=== PATIENT | female | born 2000 | race Caucasian/White ===

== ENCOUNTER 2023-12-29 18:56 | Emergency (ER) | payer OTHER, SELFPAY ==
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
[2023-12-29 19:10] VITALS: BP 121/68; PULSE 75; RESP 18; TEMP 36.3; O2SAT 99
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
[2023-12-29] MEDS: ACETAMINOPHEN 500 MG TABLET 1000 MG PO (21:55)
== END 2023-12-29 22:22 | disposition home or self-care (01) ==
PROVIDERS: Emergency Provider Preventive Medicine Aerospace Medicine; PCP Pediatrics
DX: R07.89 Other chest pain (principal); S80.811A Abrasion, right lower leg, initial encounter; S30.1XXA Contusion of abdominal wall, initial encounter; T23.271A Burn of second degree of right wrist, initial encounter; T31.0 Burns involving less than 10% of body surface; K21.9 Gastro-esophageal reflux disease without esophagitis; V49.40XA Driver injured in collision with unspecified motor vehicles in traffic accident, initial encounter; W22.11XA Striking against or struck by driver side automobile airbag, initial encounter
CPT/HCPCS: 71046; 99283; A9270

== ENCOUNTER 2024-04-10 22:56 | Emergency (ER) | payer OTHER, SELFPAY ==
[2024-04-10 23:09] VITALS: BP 130/93; PULSE 73; RESP 20; TEMP 36.4; O2SAT 100
[2024-04-10 23:32] LABS: Alanine Aminotransferase 13 U/L (6-35); Alkaline Phosphatase 73 U/L (38-126); Anion Gap 9 mmol/L (4-12); Aspartate Amino Transferase 19 U/L (14-36); Bilirubin,Total 0.6 mg/dL (0.2-1.3); Blood Urea Nitrogen 6 mg/dL (7-17); Calcium 8.4 mg/dL (8.4-10.2); Carbon Dioxide 25 mmol/L (22-30); Chloride 100 mmol/L (98-107); Estimated CRCL calculation 88 ml/min; Estimated Glomerular Filt Rate > 60; Glucose 88 mg/dL (65-110); Potassium 3.4 mmol/L (3.4-5.0); Sodium 134 mmol/L (137-145)
[2024-04-10 23:36] LABS: Basophils Percent Auto 0.3 % (0.2-1.2); Eosinophils Percent Auto 0.5 % (0-4.4); Hematocrit 41.2 % (37.0-47.0); Hemoglobin 14.6 g/dL (12.0-15.0); Immature Granulocyte Absolute 0.01 K/mm3 (0.00-0.031); Immature Granulocyte Percent A 0.2 % (0-0.5); Lymphocytes Absolute Auto 1.95 K/mm3 (0.9-3.2); Lymphocytes Percent Auto 30.3 % (18.3-44.2); Mean Corpuscular HGB Conc 35.4 g/dl (32-36); Mean Corpuscular Hemoglobin 32.2 pg (26-34); Mean Corpuscular Volume 90.7 fl (80-100); Mean Platelet Volume 9.5 fl (7.4-10.4); Monocytes Absolute Auto 0.5 K/mm3 (0.1-0.6); Monocytes Percent Auto 7.2 % (2.6-8.5); Neutrophils Percent Auto 61.5 % (45.5-73.1); Platelet Count Result 241 k/mm3 (150-375); Red Blood Count 4.54 M/mm3 (4.2-5.4); Red Cell Distribution Width 12.2 % (11.5-14.5); White Blood Count 6.4 K/mm3 (4.5-10.0)
--- NOTE | 2024-04-11 00:38 | PC.NURSE ---
Pt c/o weakness and not being able to eat since Wednesday. Pt denies any sick contacts and states she is anemic. Pt A&O x 4
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
[2024-04-11 01:30] LABS: Add Urine Microscopic? NO; Appearance Urine Clear (Clear); Bilirubin Urine Negative (Negative); Blood Urine Negative (Negative); Color Urine Yellow (Yellow); Glucose Urine UA Negative (Negative); Ketones Urine Trace mg/dL (Negative); Leukocyte Esterase Ur Negative LEU/UL (Negative); Nitrate Urine Negative (Negative); Protein Urine Negative (Negative); Specific Grav Ur 1.004 (1.001-1.035); Urobilinogen Urine 0.2 mg/dL (<2.0); pH Urine 6.5 (5.0-9.0)
--- OUTSIDE RECORDS SUMMARY | 2024-04-13 15:05 | XMS_ITS | Referral Summary ---
Author Organization [facility] Address [address] [place] [address] Care Team Providers Care Book Cutter Name Role Phone Terry Lepe MD Primary Care Provider [phone] Terry Lepe MD Unavailable [phone] Source Comments [facility],non-owned Affiliates and Associated Physician Practices is amultiple site organization consisting of ambulatory clinics and hospital sitesin [place], [place], [place] and [place]. This disclosure is being madepursuant to the Care Everywhere program and may not contain all information available regarding this patient. Last updated 17.[facility] Allergies No known active allergies Medications * Be aware that medications may not be up to date on this document. Alwaysverify current medications with the patient. Medication Sig Dispensed Refills Start Date End Date Status medroxyPROGESTERone (DEPO-PROVERA) 150 MG/ML prefilled syringe TK UTD BY MD OFFICE 0 07/30/2017 Active polyethylene glycol 3350 (MIRALAX) powder Take 17 g by mouth once daily 500 g 1 09/09/2017 Active fluticasone propionate (FLONASE) 50 MCG/ACT nasal spray [place] 2 sprays into each nostril once daily 1 bottles 11/19/2017 Active ferrous sulfate 325 (65 FE) MG tablet Take 1 tablet by mouth 2 times daily Take w/ vitamin C such as OJ. Miralax or generic for tummy upset. 60 tablet 3 12/30/2017 Active omeprazole (PRILOSEC) 20 MG capsule 1 04/03/2018 Active cyproheptadine (PERIACTIN) 2 MG/5ML syrup Take 10 mL by mouth at bedtime 300 mL 2 11/03/2018 Active fluticasone propionate (FLONASE) 50 MCG/ACT nasal spray [place] 2 sprays into each nostril once daily 16 g 1 05/29/2019 Active montelukast (SINGULAIR) 10 MG tablet Take 1 tablet by mouth at bedtime 30 tablet 5 07/21/2019 Active Active Problems Problem Noted Date Diagnosed Date Wrist pain, acute, right 05/12/2018 Primary snoring 02/09/2018 Overview (02/09/2018): Primary soft snoring Neg diag psg 02/01/18 S/p T&A OAHI 0.9 AHI: 1.3 RDI: 1.9 Min 02 sat: 95% Et/TcCO2 values: 30-44mmHg PLM index: 0.0 Acid reflux 09/08/2017 Concussion 09/08/2017 Right knee injury 11/21/2015 Lymphadenopathy 11/11/2009 Right knee pain Nasal obstruction Hypertrophy of adenoids Social History Tobacco Use Types Packs/Day Years Used Date Smoking Tobacco: Passive Smo ke Exposure - Never Smoker Smokeless Tobacco: Never Alcohol Use Standard Drinks/Week Comments No 0 (1 standard drink = 0.6 oz pur e alcohol) Sex and Gender Information Value Date Recorded Sex Assigned at Not on file Gender Identity Not on file Sexual Orientation Not on file Last Filed Vital Signs Vital Sign Reading Time Taken Comments Blood Pressure 102/50 12/30/2017 1:14 PM CDT Pulse 72 12/30/2017 1:14 PM CDT Temperature 36.6 ??C (97.8 ??F) 11/19/2017 1 1:55 AM CDT Respiratory Rate 20 11/19/2017 11:5 5 AM CDT Oxygen Saturation 100% 10/19/2017 4:45 PM CDT Inhaled Oxygen Concentration - - Weight 46.2 kg (101 lb 13.6 oz) 11/23/2018 3:21 PM CDT Height 149 cm (4' 10.66 ) 04/21/2018 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
--- OUTSIDE RECORDS SUMMARY | 2024-04-13 15:05 | XMS_ITS | Clinical Summary ---
Author Organization [facility] Address [address] [address] Care Team Providers Care Real Estate Assistant Name Role Phone Terry Lepe MD Primary Care Provider [phone] Terry Lepe MD Unavailable [phone] Source Comments [facility],non-owned Affiliates and Associated Physician Practices is amultiple site organization consisting of ambulatory clinics and hospital sitesin [place], [place], [place] and [place]. This disclosure is being madepursuant to the Care Everywhere program and may not contain all information available regarding this patient. Last updated 17.[facility] Allergies No known active allergies Medications * [...] fluticasone propionate (FLONASE) 50 MCG/ACT nasal spray [place] 2 sprays into each nostril once daily [...] fluticasone propionate (FLONASE) 50 MCG/ACT nasal spray [place] 2 sprays into each nostril once daily [...] cm (4' 10.66 ) 04/21/2018 8:52 AM PHYSICAL THERAPIST CLINIC DIRECTOR Body Mass Index - - Plan of Treatment Health Maintenance Due Date Last Done Comments PAP SMEAR 2002 HIV SCREENING 2017 HPV VACCINE (1 - 3-dose series) 2017 CHLAMYDIA/GONORRHEA SCREENING 2018 MENINGOCOCCAL (Group B) VACC INE (1 of 2 - Standard) 2018 HEPATITIS C SCREENING 04/30/2020 DTAP/TDAP/TD VACCINES (1 - Tdap) 2021 HEPATITIS B VACCINE (1 of 3 - 19+ 3-dose series) 2021 COVID-19 VACCINE (1 - 2023-2 5 season) 2023 INFLUENZA VACCINE (#1) 2023 DEPRESSION SCREENING 03/22/2024 ZOSTER VACCINE (1 of 2) 2052 HIB VACCINE Aged Out No longer eligi ble based on patient's age to complete this topic MENINGOCOCCAL VACCINE Aged Out No mirta fab eligible based on patient's age to complete this topic PNEUMOCOCCAL VACCINE Aged Out No long er eligible based on patient's age to complete this topic Care Teams Real Estate Assistant Relationship Specialty Start Date End Date Terry Lepe MD [address] [facility] [address] [place] [address] PCP - General Pediatrics 11/19/15 Terry Lepe MD [address] [facility] [address] [place] [address] 11/19/15
--- OUTSIDE RECORDS SUMMARY | 2024-04-13 15:05 | XMS_ITS | Patient Health Summary ---
Author Organization [facility] Address [address] [place] [address] Care Team Providers Care Rail Equipment Operator Name Role Phone Terry Lepe MD Primary Care Provider [phone] Terry Lepe MD Unavailable [phone] [facility],non-owned Affiliates and Associated Physician Practices is amultiple site organization consisting of ambulatory clinics and hospital sitesin [place], [place], [place] and [place]. This disclosure is being madepursuant to the Care Everywhere program and may not contain all information available regarding this patient. Last updated 17.[facility] Allergies No known active allergies Medications * Be aware that medications may not be up to date on this document. Alwaysverify current medications with the patient. * medroxyPROGESTERone (DEPO-PROVERA) 150 MG/ML prefilled syringe(Started 07/30/2017) TK UTD BY MD OFFICE * polyethylene glycol 3350 (MIRALAX) powder(Started 09/09/2017) Take 17 g by mouth once daily 1 refill remaining * fluticasone propionate (FLONASE) 50 MCG/ACT nasal spray(Started 11/19/2017) [place] 2 sprays into each nostril once daily * ferrous sulfate 325 (65 FE) MG tablet(Started 12/30/2017) Take 1 tablet by mouth 2 times daily Take w/ vitamin C such as OJ. Miralax or generic for tummy upset. 3 refills remaining * omeprazole (PRILOSEC) 20 MG capsule(Started 04/03/2018) 1 refill left * cyproheptadine (PERIACTIN) 2 MG/5ML syrup(Started 11/03/2018) Take 10 mL by mouth at bedtime 2 refills remaining * fluticasone propionate (FLONASE) 50 MCG/ACT nasal spray(Started 05/29/2019) [place] 2 sprays into each nostril once daily 1 refill by 05/28/2020 * montelukast (SINGULAIR) 10 MG tablet(Started 07/21/2019) Take 1 tablet by mouth at bedtime 5 refills by 07/20/2020 Active Problems Problem Noted Date Diagnosed Date Wrist pain, acute, right 05/12/2018 Primary snoring 02/09/2018 Acid reflux 09/08/2017 Concussion 09/08/2017 Right knee [...] cm (4' 10.66 ) 04/21/2018 8:52 AM POULTRY VACCINATOR Body Mass Index - - Procedures * REDUCED MULTIPLE SLEEP LATENCY TEST(Performed 02/01/2018) Performed for Snoring, Daytime somnolence, Sleep paralysis * T4 FREE(Performed 12/30/2017) Performed for Daytime somnolence * TSH(Performed 12/30/2017) Performed for Daytime somnolence * FERRITIN(Performed 12/30/2017) Performed for Daytime somnolence * ADENOIDECTOMY(Performed 10/19/2017) Performed for Adenoid enlargement * HCG URINE QUAL POCT NOTIFICATION(Performed 10/19/2017) Performed for Preop examination * TISSUE TRANSGLUTAMINASE AB IGA(Performed 09/09/2017) Performed for Generalized abdominal pain * IGA BLOOD(Performed 09/09/2017) Performed for Generalized abdominal pain * COMPREHENSIVE METABOLIC PANEL(Performed 09/09/2017) Performed for Generalized abdominal pain * CBC W AUTO DIFFERENTIAL(Performed 09/09/2017) Performed for Generalized abdominal pain * CULTURE MRSA(Performed 05/07/2017) * MRI KNEE RIGHT WO CONTRAST(Performed 04/22/2016) Performed for Right knee injury, subsequent encounter * CULTURE MRSA(Performed 04/10/2016) Performed for MRSA (methicillin resistant staph aureus) culture positive * XR KNEE RIGHT 2VW OR LESS(Performed 01/07/2016) Performed for Right knee injury, initial encounter * XR KNEE RIGHT 4VW OR MORE(Performed 07/26/2015) Performed for Right knee pain, unspecified chronicity * XR KNEE LEFT 4VW OR MORE(Performed 07/26/2015) * EKG 15-LEAD(Performed 04/25/2015) Performed for Dizziness * PATHOLOGY/CYTOLOGY REPORT ORDER(Performed 04/21/2012) * CYTOGENETICS CANCER PANEL(Performed 03/11/2012) Performed for Lymphadenopathy * BIOPSY/EXCISION LYMPH NODE(S) CERVICAL/SCALENE(Performed 03/10/2012) Performed for Enlargement of lymph nodes * CULTURE FUNGUS OTHER(Performed 03/10/2012) * CULTURE AFB+SMEAR(Performed 03/10/2012) * PATHOLOGY TISSUE EXAM (STL)(Performed 03/10/2012) Performed for Lymphadenopathy * CULTURE MSSA/MRSA(Performed 03/10/2012) * PATHOLOGY/CYTOLOGY REPORT ORDER(Performed 03/02/2012) * ESOPHAGOGASTRODUODENOSCOPY (EGD) BIOPSY(Performed 03/01/2012) Performed for Abdominal pain, unspecified site * EGD(Performed 03/01/2012) Performed for Abdominal pain, unspecified site * PATHOLOGY TISSUE EXAM (STL)(Performed 03/01/2012) Performed for Abdominal pain, unspecified site * HELICOBACTER PYLORI UREASE(Performed 03/01/2012) Performed for Abdominal pain, unspecified site * CULTURE MRSA(Performed 02/24/2012) Performed for MRSA (methicillin resistant staph aureus) culture positive * DIFFERENTIAL MANUAL(Performed 02/05/2012) Performed for Abdominal pain, unspecified site * LIPASE BLOOD(Performed 02/05/2012) Performed for Abdominal pain, unspecified site * C-REACTIVE PROTEIN(Performed 02/05/2012) Performed for Abdominal pain, unspecified site * COMPREHENSIVE METABOLIC PANEL(Performed 02/05/2012) Performed for Abdominal pain, unspecified site * CBC W AUTO DIFFERENTIAL(Performed 02/05/2012) Performed for Abdominal pain, unspecified site * AMYLASE BLOOD(Performed 02/05/2012) Performed for Abdominal pain, unspecified site * XR CHEST 2VW(Performed 01/13/2012) Performed for Lymphadenopathy * CULTURE MRSA(Performed 01/13/2012) Performed for Lymphadenopathy * XR CHEST 2VW(Performed 12/09/2009) Performed for Lymphadenopathy * PATHOLOGY/CYTOLOGY REPORT ORDER(Performed 11/15/2009) * GROSS + MICRO EXAM(Performed 11/13/2009) * CULTURE MRSA(Performed 11/13/2009) * CULTURE MRSA(Performed 11/11/2009) Performed for Lymphadenopathy * DIFFERENTIAL MANUAL(Performed 11/11/2009) * CBC W AUTO DIFFERENTIAL(Performed 11/11/2009) Performed for Lymphadenopathy * GROSS EXAM PATHOLOGY(Performed 09/09/2004) * GROSS + MICRO EXAM(Performed 03/05/2004) Results * POLYSOMNOGRAM W/MULTIPLE SLEEP LATENCY TEST (02/01/2018) Pathologist [facility] Linked Results See Linked Results SLE[facility]ENTER 02/01/2018 Chata Salazar APRN[facility] * TSH (12/30/2017 2:46 PM CDT) Pathologist [facility] TSH 0.88 0.35 - 4.95 uIU/mL 12/30/2017 4:35 PM CDT [facility] Blood BLOOD SPECIMEN / Unknown Lab Venipuncture / Unknown 12/30/2017 2:46 PM CDT 12/30/2017 3:43 PM CDT Chata Rivera Martin GAS EXAMINER-SHIP WIRER LAB - CHEMISTR Y ORDERABLES Performing Organization Address [facility]/ZIP Co de Phone Number [facility] [address] [place] [phone] * T4 FREE (12/30/2017 2:46 PM CDT) Pathologist [facility] T4 Free 0.85 0.70 - 1.48 ng/dL 12/30/2017 4:49 PM CDT [facility] Blood BLOOD SPECIMEN / Unknown Lab Venipuncture / Unknown 12/30/2017 2:46 PM CDT 12/30/2017 3:43 PM CDT Chata Rivera Martin GAS EXAMINER-SHIP WIRER LAB - CHEMISTR Y ORDERABLES Performing Organization Address [facility] Co de Phone Number [facility] [address] [place] [phone] * (ABNORMAL) FERRITIN (12/30/2017 2:46 PM CDT) [facility] Ferritin <10(L) 10 - 140 ng/mL 12/30/2017 4:35 PM CDT [facility] Blood BLOOD SPECIMEN / Unknown Lab Venipuncture / Unknown 12/30/2017 2:46 PM CDT 12/30/2017 3:43 PM CDT Chata Rivera Martin GAS EXAMINER-SHIP WIRER LAB - CHEMISTR Y ORDERABLES Performing Organization Address [facility] Co de Phone Number [facility] [address] [place] [phone] * HCG URINE QUALITATIVE - POCT (IP) INTERFACED (10/19/2017 2:15 PM CDT) Urine URINE / Unknown 10/19/2017 2 :15 PM CDT 10/19/2017 2:19 PM CDT Brayden Carpenter MD LAB - POINT OF CARE ORDERABLES Performing Organization Address [facility] de Phone Number [facility] [address] [place] [address] * HCG URINE QUAL POCT NOTIFICATION (10/19/2017 1:50 PM CDT) Pathologist [facility] Comment Notification Label Only - See Separate Report 10/19/2017 3:00 PM CDT [facility] Urine URINE / Unknown 10/19/2017 1 :50 PM CDT 10/19/2017 1:50 PM CDT Brayden Carpenter MD LAB - URINALYSIS ORD ERABLES Performing Organization Address [facility] de Phone Number [facility] [address] [place] [address] * TISSUE TRANSGLUTAMINASE AB IGA (09/09/2017 3:16 PM CDT) Pathologist [facility] TTG Antibody IgA <2 0 - 3 U/mL 09/10/2017 2:14 PM CDT [facility] ([facility]) Comment: ?Negative ?0 - ??3 ?Weak Positive ?? 4 - 10 ?Positive ? >10 Tissue Transglutaminase (tTG) has been identified as the endomysial antigen. ??Studies have demonstr- ated that endomysial IgA antibodies have over 99% specificity for gluten sensitive enteropathy. Blood BLOOD SPECIMEN / Unknown Lab Venipuncture / Unknown 09/09/2017 3:16 PM CDT 09/09/2017 3:57 PM CDT Narrative [facility] ([facility]) - 09/10/2017 2:14 PM CDT Performed at: ??01 - [facility] [address] [place], [place] ??[id number] Supervisor [employer]: Brendan Henry PhD, Phone: ??[phone] Seda Silveira MD LAB - SEROLOGY ORDER ANDRE [facility]) [address] [place] [address] * (ABNORMAL) CBC W AUTO DIFFERENTIAL (09/09/2017 3:16 PM CDT) Only the most recent of3 resultswithin the time period is included. WBC 4.5 4.5 - 14.5 x10E9/L 09/09/2017 4:41 PM CDT [facility] WBC Corrected x10E9/L 09/09/2017 4:41 PM CDT [facility] RBC 4.84 4.10 - 5.10 x10E12/L 09/09/2017 4:41 PM CDT [facility] Hemoglobin 14.6 12.0 - 16.0 gm/dL 09/09/2017 4:41 PM CDT [facility] Hematocrit 42.2 36.0 - 47.0 % 09/09/2017 4:41 PM CDT [facility] MCV 87.2 78.0 - 98.0 fl 09/09/2017 4:41 PM CDT [facility] MCH 30.2 25.0 - 35.0 pg 09/09/2017 4:41 PM CDT [facility] MCHC 34.6 31.0 - 37.0 gm/dL 09/09/2017 4:41 PM CDT [facility] Platelet Count 191 100 - 400 x10E9/L 09/09/2017 4:41 PM CDT [facility] RDW-CV 11.8 11.5 - 14.0 % 09/09/2017 4:41 PM CDT [facility] MPV 9.8(H) 6.0 - 9.5 fl 09/09/2017 4:41 PM CDT [facility] Neutrophils % 44.7 24.0 - 66.0 % 09/09/2017 4:41 PM CDT [facility] Lymphocytes % 43.8 22.0 - 61.0 % 09/09/2017 4:41 PM CDT [facility] Monocytes % 10.5 3.0 - 15.0 % 09/09/2017 4:41 PM CDT [facility] Eosinophils % 0.4 0.0 - 10.0 % 09/09/2017 4:41 PM CDT [facility] Basophils % 0.4 % 09/09/2017 4:41 PM CDT [facility] Immature Granulocytes 0.2 % 09/09/2017 4:41 PM CDT [facility] Neutrophil Absolute 1.99 x10E9/L 09/09/2017 4:41 PM CDT [facility] Lymphocytes Absolute 1.96 x10E9/L 09/09/2017 4:41 PM CDT [facility] Monocytes Absolute 0.47 x10E9/L 09/09/2017 4:41 PM CDT [facility] Eosinophils Absolute 0.02 x10E9/L 09/09/2017 4:41 PM CDT [facility] Basophils Absolute 0.02 x10E9/L 09/09/2017 4:41 PM CDT [facility] Immature Granulocytes Absolute 0.01 x10E9/L 09/09/2017 4:41 PM CDT [facility] nRBC Auto 0 /100 WBC 09/09/2017 4:41 PM T [facility] Blood BLOOD SPECIMEN / Unknown Lab Venipuncture / Unknown 09/09/2017 3:16 PM CDT 09/09/2017 3:57 PM CDT Seda Silveira MD LAB - HEMATOLOGY ORD ERABLES Performing Organization Address City/State/[facility] Co de Phone Number [facility] [place], [place] [id number] * (ABNORMAL) COMPREHENSIVE METABOLIC PANEL (09/09/2017 3:16 PM CDT) Only the most recent of2 resultswithin the time period is included. [facility] Glucose 86 70 - 105 mg/dL 09/09/2017 4:31 PM CDT [facility] Sodium 140 136 - 145 mmol/L 09/09/2017 4:31 PM CDT [facility] Potassium 3.8 3.5 - 5.1 mmol/L 09/09/2017 4:31 PM CDT [facility] Chloride 105 98 - 107 mmol/L 09/09/2017 4:31 PM T [facility] CO2 25 20 - 28 mmol/L 09/09/2017 4:31 PM T [facility] Calcium 9.60 9.08 - 10.48 mg/dL 09/09/2017 4:31 PM T [facility] Anion Gap 10 5 - 20 mmol/L 09/09/2017 4:31 PM T [facility] BUN 11.0 5.3 - 18.7 mg/dL 09/09/2017 4:31 PM T [facility] Creatinine 0.78 0.61 - 1.07 mg/dL 09/09/2017 4:31 PM [facility] Alkaline Phosphatase 83(L) 100 - 390 U/L 09/09/2017 4:31 PM T [facility] ALT 14 8 - 65 U/L 09/09/2017 4:31 PM [facility] AST 15 3 - 35 U/L 09/09/2017 4:31 PM T [facility] Protein Total 7.3 6.3 - 8.2 gm/dL 09/09/2017 4:31 PM T [facility] Albumin 4.3 3.3 - 4.9 gm/dL 09/09/2017 4:31 PM T [facility] Bilirubin Total 0.6 0.3 - 1.2 mg/dL 09/09/2017 4:31 PM T [facility] eGFR by MDRD mL/min/1.7 3m2 09/09/2017 4:31 PM T [facility] Comment: eGFR calculations are not performed for children under 18 years old. eGFR by MDRD mL/min/1.7 3m2 09/09/2017 4:31 PM T [facility] Comment: eGFR calculations are not performed for children under 18 years old. Blood BLOOD SPECIMEN / Unknown Lab Venipuncture / Unknown 09/09/2017 3:16 PM CDT 09/09/2017 3:57 PM CDT Seda Silveira MD LAB - CHEMISTRY LORE LARA [facility] Organization Address City/State/ZIP Co de Phone Number [facility] [place] [address] * IGA BLOOD (09/09/2017 3:16 PM CDT) IgA 81 65 - 421 mg/dL 09/09/2017 4:31 PM CDT [facility] Blood BLOOD SPECIMEN / Unknown Lab Venipuncture / Unknown 09/09/2017 3:16 PM CDT 09/09/2017 3:57 PM CDT Seda Silveira MD LAB - CHEMISTRY LORE LARA Performing Organization Address City/[facility]/ZIP Co de Phone Number [facility] [place] [address] * CULTURE MRSA (05/07/2017 2:34 PM POULTRY VACCINATOR) Only the most recent of6 resultswithin the time period is included. Pathologist [facility] Culture Negative for methicillin-resist ant Staphylococcus aureus (MRSA) STUART 05/09/2017 7:20 AM POULTRY VACCINATOR [facility] MICROBIOLOGY Microbiology SPECIMEN FROM NASAL FOSSAE / Unknown Collection / Unknown 05/07/2017 2:34 PM POULTRY VACCINATOR 05/07/2017 2:37 PM POULTRY VACCINATOR Jericho Sequeira MD LAB - MICROBIOLOGY O RDERABLES Performing Organization Address [facility] Co de Phone Number [facility] MICROBIOLOGY [address] [place] [address] [phone] * MRI KNEE WO CONT RIGHT (04/22/2016 8:42 AM POULTRY VACCINATOR) Anatomical Region Laterality Modality Lower Extremity Magnetic Resonan ce 04/22/2016 9:20 AM POULTRY VACCINATOR Impressions 04/22/2016 9:26 AM POULTRY VACCINATOR Intact medial and lateral menisci. Intact articular cartilage. Intact cruciate and collateral ligaments. Narrative 04/22/2016 9:26 AM POULTRY VACCINATOR Examination: MRI of the right knee without contrast History: Right knee pain Findings: MRI of the right knee was performed without intravenous contrast. Comparison is made to radiographs dated 01/07/2016. In the medial compartment, the medial meniscus is intact. There is no focal chondrosis or subchondral edema. In the lateral compartment, the lateral meniscus is intact. There is no focal chondrosis or subchondral marrow edema. In the patellofemoral compartment there is no focal chondrosis or subchondral edema. The extensor mechanism is intact. The anterior and posterior cruciate ligaments are intact. The medial and lateral collateral ligaments are intact. Popliteus muscle belly and tendon are intact. There is a physiologic amount of fluid within the knee joint. Tiny Xie's cyst is present. There is no MRI evidence of acute fracture. There is no suspicious marrow replacing lesion. Procedure Note Daniel Baird MD - 04/22/2016 Examination: MRI of the right knee without contrast History: Right knee pain Findings: MRI of the right knee was performed without intravenous contrast. Comparison is made to radiographs dated 01/07/2016. In the medial compartment, the medial meniscus is intact. There is no focal chondrosis or subchondral edema. In the lateral compartment, the lateral meniscus is intact. There is no focal chondrosis or subchondral marrow edema. In the patellofemoral compartment there is no focal chondrosis or subchondral edema. The extensor mechanism is intact. The anterior and posterior cruciate ligaments are intact. The medial and lateral collateral ligaments are intact. Popliteus muscle belly and tendon are intact. There is a physiologic amount of fluid within the knee joint. Tiny Xie's cyst is present. There is no MRI evidence of acute fracture. There is no suspicious marrow replacing lesion. IMPRESSION Intact medial and lateral menisci. Intact articular cartilage. Intact cruciate and collateral ligaments. Noam Kellogg MD MR ORDERABLES * XR KNEE 1 OR 2 VW RIGHT (01/07/2016 2:39 PM CDT) Anatomical Region Laterality Modality Lower Extremity Radiographic Mary ging 01/07/2016 2:44 PM CDT Impressions 01/07/2016 2:46 PM CDT Infrapatellar soft tissue edema with decreased knee joint effusion. Narrative 01/07/2016 2:46 PM CDT EXAMINATION: Right knee one or 2 views HISTORY: Knee injury. COMPARISON: Right knee radiographs dated 07/26/2015. FINDINGS: 2 view examination of the right knee demonstrates decreased small knee joint effusion. There is mild infrapatellar soft tissue edema. There is no acute or healing fracture. The joint spaces and alignment appear normal. Procedure Note Karolyn Acosta MD - 01/07/2016 EXAMINATION: Right knee one or 2 views HISTORY: Knee injury. COMPARISON: Right knee radiographs dated 07/26/2015. FINDINGS: 2 view examination of the right knee demonstrates decreased small knee joint effusion. There is mild infrapatellar soft tissue edema. There is no acute or healing fracture. The joint spaces and alignment appear normal. IMPRESSION Infrapatellar soft tissue edema with decreased knee joint effusion. Shamika NAQVI DIAGNOSTIC IMAGING O RDERABLES * XR KNEE 4+ VW RIGHT (07/26/2015 1:05 PM CDT) Anatomical Region Laterality Modality Lower Extremity Radiographic Mary ging 07/26/2015 2:04 PM CDT Impressions 07/26/2015 2:05 PM CDT Bilateral joint effusions. Narrative 07/26/2015 2:05 PM CDT Right knee four views Left knee four views History: Pain. No prior examinations are available for comparison. The osseous structures are intact and well aligned. A suprapatellar joint effusion is present. No fracture is identified. Procedure Note Ceci Lo MD - 07/26/2015 Right knee four views Left knee four views History: Pain. No prior examinations are available for comparison. The osseous structures are intact and well aligned. A suprapatellar joint effusion is present. No fracture is identified. IMPRESSION Bilateral joint effusions. Felipe Tamayo MD DIAGNOSTIC IMAGING O RDERABLES * XR KNEE 4+ VW LEFT (07/26/2015 1:05 PM CDT) Anatomical Region Laterality Modality Lower Extremity Radiographic Mary ging 07/26/2015 2:04 PM CDT Impressions 07/26/2015 2:05 PM CDT Bilateral joint effusions. Narrative 07/26/2015 2:05 PM CDT Right knee four views Left knee four views History: Pain. No prior examinations are available for comparison. The osseous structures are intact and well aligned. A suprapatellar joint effusion is present. No fracture is identified. Procedure Note Ceci Lo MD - 07/26/2015 Right knee four views Left knee four views History: Pain. No prior examinations are available for comparison. The osseous structures are intact and well aligned. A suprapatellar joint effusion is present. No fracture is identified. IMPRESSION Bilateral joint effusions. Noam Kellogg MD DIAGNOSTIC IMAGING O RDERABLES * EKG 15-LEAD (04/25/2015 10:34 PM POULTRY VACCINATOR) Ventricular Rate 76 BPM CG MUSE Atrial Rate 76 BPM CG MUSE P-R Interval 126 ms CG MUSE QRS Duration ms 78 ms CG MUSE Q-T Interval ms 376 ms CG MUSE QTC Calculation (Bezet) 423 ms CG MUSE Calculated P [place] 53 degrees CG MUSE Calculated R [place] 77 degrees CG MUSE Calculated T [place] 43 degrees CG MUSE Interpretation EKG artifact prominent * Pediatric ECG Analysis * Normal sinus rhythm Normal ECG No previous ECGs available Confirmed by ALEXANDRA ZAPATA ([id number]) on 05/08/2015 12:28:40 PM CG MUSE 04/25/2015 10:3 4 PM POULTRY VACCINATOR 05/08/2015 12:28 PM POULTRY VACCINATOR Issac Cavazos MD ECG ORDERABLES CG MUSE * PATHOLOGY/CYTOLOGY REPORT ORDER (04/21/2012 8:30 AM POULTRY VACCINATOR) Only the most recent of3 resultswithin the time period is included. Narrative 04/21/2012 8:30 AM POULTRY VACCINATOR Procedure Note Document, Scanned - 04/21/2012 8:30 AM CST Scanned Document LAB - PATHOLOGY/CYTO LOGY ORDERABLES * CYTOGENETICS CANCER PANEL (03/11/2012 9:40 AM POULTRY VACCINATOR) Pathologist [facility] Indication for Study Cervical Lymph Node / Lymphadenopathy 03/18/2012 1:30 AM POULTRY VACCINATOR [facility] Results Cytogenetics Analysis of 20 cells (7 cells karyotyped, GTL-banding) from direct preparation and 72-hour Interleukin stimulated lymph node cultures showed the following chromosome pattern: 46,XX[20] 03/18/2012 1:30 AM POULTRY VACCINATOR [facility]TO[facility] Interpretation 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 03/18/2012 1:30 AM [facility] CYTO[facility] Other (qualifier value) ENTIRE LYMPH NODE / Unknown 03/11/2012 9:40 AM POULTRY VACCINATOR 03/11/2012 11:19 AM POULTRY VACCINATOR Eunice Bhagat MD LAB - PATHOLOGY/CYTO LOGY ORDERABLES Performing Organization Address City/[facility]/ZIP Co de Phone Number [facility] [address] [place] [address] * CULTURE AFB+SMEAR (03/10/2012 5:23 PM POULTRY VACCINATOR) Culture SEE BELOW 04/19/2012 6:00 AM POULTRY VACCINATOR [facility] Comment: - Final - ACID FAST SMEAR No acid fast bacilli seen. No growth of Acid Fast Bacillus Miscellaneous samples (specimen) ENTIRE LYMPH NODE / Unknown 03/10/2012 5:23 PM POULTRY VACCINATOR 03/10/2012 5:48 PM POULTRY VACCINATOR Rusty Grace MD LAB - MICROBIOLOGY O ANAID Performing Organization Address [facility] Co de Phone Number [facility] INTER[facility]AC[facility] [address] [place] [address], [facility] * CULTURE FUNGUS OTHER (03/10/2012 5:23 PM POULTRY VACCINATOR) Culture SEE BELOW 04/04/2012 10:49 AM POULTRY VACCINATOR [facility] Comment: - Final - FUNGUS SMEAR No yeast or hyphae seen No growth of fungus Miscellaneous samples (specimen) ENTIRE LYMPH NODE / Unknown 03/10/2012 5:23 PM POULTRY VACCINATOR 03/10/2012 5:48 PM POULTRY VACCINATOR Rusty Grace MD LAB - MICROBIOLOGY O ANAID Performing Organization Address City/[facility]/ZIP Co de Phone Number [facility] INTER[facility]AC[facility] [address] [place] [id number], [facility] * GROSS + MICRO EXAM (STL) (03/10/2012 4:26 PM POULTRY VACCINATOR) Only the most recent of2 resultswithin the time period is included. Case Report Surgical Pathology Report ? Case: [id number] ? Authorizing Provider: ??Donna Kennedy MD ? Ordering Provider: ?? Donna Kennedy MD ? Ordering Location: ? [facility] ? Collected: ? 03/10/2012 ??4:26 PM ? Pathologist: ? Alma Bhagat MD ? Received: ?03/10/2012 ??4:48 PM ?Signed Out: ?03/24/2012 ??5:30 PM (Addend, ? F) ? 03/12/2012 11:48 AM (Final) ? Specimen: ?Neck Mass, Right ? 03/24/2012 5:30 PM [facility] Addendum 1 This addendum is to report the results of special stains (1 GMS and 1 AFB) and Cytogenetics. GMS and AFB stains are negative for fungi and acid-fast bacilli, respectively. 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 03/24/2012 5:30 PM [facility] Final Diagnosis LYMPH NODE, NECK MASS, EXCISION: ? - LYMPHOID HYPERPLASIA (SEE COMMENT). COMMENT: Flow cytometric analysis is negative for non-Hodgkin lymphoma; please see the scanned-in report # [id number]. The result of cytogenetic analysis is pending. 03/24/2012 5:30 PM [facility] Clinical History The patient is a 11-year-old girl, with a right neck mass and bilateral cervical lymphadenopathy, who underwent right cervical lymph node excision. 03/24/2012 5:30 PM [facility] Gross Description Received fresh in one container for gross and microscopic examination, labeled with the patient's name, Duyen Lopez, and neck mass , are three pink-finney lymph nodes, the largest measuring 2.4 x 1.4 x 0.8 cm, the middle one measuring 1.5 x 1.0 x 0.5 cm and the smallest measuring 1.2 x 0.9 x 0.3 cm. Cut surface reveals a smooth, fatty appearance, with areas of red demarcation. Touch preps are prepared. A section is submitted fresh in RPMI for possible flow cytometry and two human resources hr representative sections are submitted in cassettes A1 and A2. Dr Kennedy retrieved a fragment for mycobacterial culture. (MP/vr) 03/24/2012 5:30 PM [facility] Microscopic Description 2 H&E. Sections of lymph node show follicular and diffuse marked paracortical lymphoid hyperplasia with partial loss of follicular architecture. The lymphocytes are mostly mature small lymphocytes with no atypical features. Ryan-Yfn cells and its variants are not seen. 03/24/2012 5:30 PM [facility] Disclaimer The performance characteristics of all immunohistochemical and indirect ??immunofluorescence stains (if any) cited in this report were determined by the Histopathology Laboratory of [facility] (immunohistochemistry ) or the Histology Laboratory of [facility] (indirect immunofluorescence) in compliance with CLIA `88 regulations. ??Some of these tests rely on the use of analyte-specific reagents and are subject to specific labeling requirements by the FDA. ??Such tests were developed by the ??Histopathology Laboratory of [facility] or the Histology Laboratory of [facility] and have not been cleared or approved by the FDA. ??The FDA has determined that such clearance or approval is not necessary. ??These tests are used for clinical purposes and should not be regarded as investigational or for research. ? This case has been personally reviewed and interpreted by the attending (teaching) pathologist. 03/24/2012 5:30 PM [facility] Synoptic Report 03/24/2012 5:30 PM [facility] Miscellaneous samples (specimen) MASS OF NECK / Unknown 03/10/2012 4:26 PM POULTRY VACCINATOR 03/10/2012 4:48 PM POULTRY VACCINATOR Donna Kennedy MD LAB - PATHOLOGY/CYTO LOGY ORDERABLES Performing Organization Address [facility] Co de Phone Number [facility] [address] [place] [address] * CULTURE MSSA/MRSA (03/10/2012 3:53 PM POULTRY VACCINATOR) Culture SEE BELOW 03/12/2012 8:26 AM POULTRY VACCINATOR [facility] INTERFACES Comment: - Final - NO growth of Staphylococcus ?? aureus (MRSA) NO growth of Staphylococcus ?? aureus Miscellaneous samples (specimen) SPECIMEN FROM NASAL FOSSAE / Unknown 03/10/2012 3:53 PM POULTRY VACCINATOR 03/10/2012 5:03 PM POULTRY VACCINATOR Tory Kern MD LAB - MICROBIOLOGY O RDERABLES Performing Organization Address [facility] Co de Phone Number [facility] [employer] INTERFACES [address] [place], [place] [id number] [place] [address] * EGD (03/01/2012 11:38 AM POULTRY VACCINATOR) Narrative [facility] - 03/01/2012 11:38 AM POULTRY VACCINATOR Procedure Note Benny Roman MD - 03/01/2012 11:38 AM CST Benny Roman MD GI PROCEDURE ORDERAB LES Performing Organization Address [facility] Co de Phone Number [facility] [address] [place] [address] * HELICOBACTER PYLORI UREASE (03/01/2012 11:30 AM POULTRY VACCINATOR) Helicobacter pylori Urease Initial Negative Negative 03/02/2012 1:47 PM POULTRY VACCINATOR [facility] Helicobacter pylori Urease Final Negative Negative 03/02/2012 1:47 PM POULTRY VACCINATOR [facility] Comment:This is an appended report. These results have been appended to a previously preliminary verified report. Miscellaneous samples (specimen) GASTRIC ANTRAL BIOPSY SPECIMEN / Unknown 03/01/2012 11:30 AM POULTRY VACCINATOR 03/01/2012 12:05 PM POULTRY VACCINATOR Benny Roman MD LAB - MICROBIOLOGY O ANAID Performing Organization Address [facility]/ZIP Co de Phone Number [facility] [address] [place] [address] * (ABNORMAL) C-REACTIVE PROTEIN (02/05/2012 10:00 AM POULTRY VACCINATOR) C-Reactive Protein 2.1(H) <=0.5 mg/dL 02/05/2012 11:12 AM [facility] Blood specimen (specimen) BLOOD SPECIMEN / Unknown 02/05/2012 10:00 AM POULTRY VACCINATOR 02/05/2012 10:39 AM POULTRY VACCINATOR Benny Romna MD LAB - CHEMISTRY LORE LARA Performing Organization Address [facility] de Phone Number [facility] [address] [place] [address] * (ABNORMAL) DIFFERENTIAL MANUAL (02/05/2012 10:00 AM POULTRY VACCINATOR) Only the most recent of2 resultswithin the time period is included. WBC Auto 13.6 X(10)9/L 02/05/2012 5:35 PM [facility] Neutrophil % Manual 70(H) 24 - 66 % 02/05/2012 5:35 PM [facility] Lymphocytes % Manual 16(L) 22 - 61 % 02/05/2012 5:35 PM [facility] Monocytes % Manual 5 3 - 15 % 02/05/2012 5:35 PM [facility] Eosinophils % Manual 1 0 - 10 % 02/05/2012 5:35 PM [facility] Atypical Lymphocyte % Manual 1 % 02/05/2012 5:35 PM [facility] Band % Manual 7 % 02/05/2012 5:35 PM [facility] Cells Counted 100 # cells 02/05/2012 5:35 PM [facility] Platelet Estimation Adequate platelets 02/05/2012 5:35 PM [facility] RBC Morphology Normal 02/05/2012 5:35 PM [facility] WBC Morph Normal 02/05/2012 5:35 PM [facility] Blood specimen (specimen) BLOOD SPECIMEN / Unknown 02/05/2012 10:00 AM POULTRY VACCINATOR 02/05/2012 10:35 AM POULTRY VACCINATOR Benny Roman MD LAB - HEMATOLOGY ORD ERABLES Performing Organization Address [facility] Co de Phone Number [facility] [address] [place] [address] * LIPASE BLOOD (02/05/2012 10:00 AM POULTRY VACCINATOR) Lipase 25 10 - 150 U/L 02/05/2012 11:12 AM POULTRY VACCINATOR [facility] Blood specimen (specimen) BLOOD SPECIMEN / Unknown 02/05/2012 10:00 AM POULTRY VACCINATOR 02/05/2012 10:39 AM POULTRY VACCINATOR Benny Roman MD LAB - CHEMISTRY LORE LRAA Performing Organization Address [facility] de Phone Number [facility] [address] [place] [address] * (ABNORMAL) AMYLASE BLOOD (02/05/2012 10:00 AM POULTRY VACCINATOR) Amylase 84(H) 5 - 65 U/L 02/05/2012 11:12 AM POULTRY VACCINATOR [facility] Blood specimen (specimen) BLOOD SPECIMEN / Unknown 02/05/2012 10:00 AM POULTRY VACCINATOR 02/05/2012 10:39 AM POULTRY VACCINATOR Benny Roman MD LAB - CHEMISTRY LORE LARA Performing Organization Address [facility] de Phone Number [facility] [address] [place] [address] * XR CHEST PA AND LATERAL (01/13/2012 11:46 AM CDT) Only the most recent of2 resultswithin the time period is included. Anatomical Region Laterality Modality Chest Radiographic Mary ging 01/13/2012 12:1 0 PM CDT Impressions 01/13/2012 12:10 PM CDT Left basilar calcifications most likely reflecting prior granulomatous disease. Occasionally a pulmonary hamartoma can have a similar appearance. There is no evidence of mediastinal or hilar lymphadenopathy Narrative 01/13/2012 12:10 PM CDT Two views of the chest performed January 13, 2012. History: Enlarged lymph nodes. Frontal and lateral views of the chest were obtained and are compared to prior films of December 09, 2009. Tiny calcifications are again seen at the left base. These most likely represent evidence of prior granulomatous disease. No definite calcified left hilar lymph nodes are seen. There is no evidence of focal infiltrate, pleural effusion, or pneumothorax. The heart is within normal limits in size and the peripheral pulmonary vascularity is within normal limits. The hilar structures and mediastinum are normal in contour. The visualized bony structures are intact. Procedure Note Anusha Gardner MD - 01/13/2012 Two views of the chest performed January 13, 2012. History: Enlarged lymph nodes. Frontal and lateral views of the chest were obtained and are compared to prior films of December 09, 2009. Tiny calcifications are again seen at the left base. These most likely represent evidence of prior granulomatous disease. No definite calcified left hilar lymph nodes are seen. There is no evidence of focal infiltrate, pleural effusion, or pneumothorax. The heart is within normal limits in size and the peripheral pulmonary vascularity is within normal limits. The hilar structures and mediastinum are normal in contour. The visualized bony structures are intact. IMPRESSION Left basilar calcifications most likely reflecting prior granulomatous disease. Occasionally a pulmonary hamartoma can have a similar appearance. There is no evidence of mediastinal or hilar lymphadenopathy Tory Kern MD DIAGNOSTIC IMAGING O RDERABLES * GROSS + MICRO EXAM (11/13/2009 5:32 PM CDT) Only the most recent of2 resultswithin the time period is included. [facility] Clinical History [facility] Comment: The patient is a 9-year-old girl who underwent removal of lymph nodes from the right neck. Gross Description [facility] Comment: Submitted fresh in one container for gross and microscopic examination labeled with the patient's name, Duyen Lopez and lymph nodes biopsy are three portions of matted, pink-finney lymph nodes with an aggregate measurement of 4 x 1.5 x 0.5 cm. ??The specimen are bisected, and cut surface reveals homogeneous, pink-finney lymphoid tissue. ??A portion of the specimen is saved for possible flow cytometry. ??The remainder of the specimen is submitted in cassettes A1 through A3 . (CT/ld) Microscopic Examination [facility] Comment: 3 H+E, 1 PAS, 1 AFB. Sections show cortical and paracortical lymphoid aggregates most of which show germinal centers. ??Several micro-granulomas are seen throughout all the sections. ??PAS for fungi and acid fast for mycobacteria are negative. ??(CSA/ld) Diagnosis [facility] Comment: DIAGNOSIS: ??LYMPH NODES, RIGHT NECK MASS: ?-REACTIVE FOLLICULAR LYMPHOID HYPERPLASIA. ?-MICROGRANULOMAS, UNDETERMINED ETIOLOGY. This case has been personally reviewed and interpreted by the attending (teaching) pathologist. Rug Cutter Helper ESTHER WYNN, [facility] Pathologist uRss live M.D. [facility] Electronically Signed By Russ live M.D. [facility] ENTIRE LYMPH NODE / Unknown 11/13/2009 5:32 PM CDT 11/14/2009 7:17 AM CDT Ernesto Avila MD LAB - PATHOLOGY/CYTO LOGY ORDERABLES Performing Organization Address City/State/[facility] Co de Phone Number [facility] [address] [place] [address] * GROSS EXAM PATHOLOGY (09/09/2004 11:45 AM CDT) Result CASE NUMBER [id number] [facility] PATH REPORT Comment: ORDERING PHYSICIAN ??TOYR KERN SPECIMEN TYPE ?Tonsils / Adenoids CLINICAL HISTORY ? The patient is a 4-year-old girl with obstructive sleep apnea, chronic otitis media with effusion and adenotonsillar hypertrophy who underwent a tonsillectomy and adenoidectomy. GROSS DESCRIPTION ? The specimen labeled with the patient's name and tonsils and adenoids is received fresh for gross examination only and consists of two egg- shaped pink-finney tonsils measuring 2.0 x 1.0 x 0.5 cm and 2.5 x 1.4 x 1.0 cm and weighing approximately 3.0 gms combined. ??On cut surface the tonsils have a cerebriform yellow-finney appearance. ??No sections are taken. ??Also submitted in the same container is a single fragment of pink-finney lymphoid tissue measuring 2.2 x 1.4 x 0.7 cm and weighing approximately 2.0 gms. ??No sections are taken. ??(SC/lw) GROSS DIAGNOSIS ? GROSS DIAGNOSIS ?? TONSILS AND ADENOIDS. This case has been personally reviewed and interpreted by the attending (teaching) pathologist. Rug Cutter Helper ? Murphy Villa RESIDENT IN PATHOLOG Jeanette Salcedo, [facility] PATHOLOGIST ?Nadya Hall M.D. ELECTRONICALLY NADYA MCCONNELL MISCELLANEOUS SAMPLES / Unknown 09/09/2004 11:45 AM CDT 09/09/2004 12:24 PM CDT Historical Provider MD LAB - PATHOLOGY/C YTOLOGY ORDERABLES [facility] PATH REPORT Care Teams Rail Equipment Operator Relationship Specialty Start Date End Date Terry Lepe MD [address] [id number] PCP - General Pediatrics 11/19/15 Terry Lepe MD [address] [facility] [address] [place] [address] 11/19/15
== END 2024-04-11 01:54 | disposition home or self-care (01) ==
PROVIDERS: Emergency Medicine; Emergency Provider Physician Assistant; PCP Pediatrics
DX: R53.83 Other fatigue (principal); R53.81 Other malaise; E61.1 Iron deficiency; K58.9 Irritable bowel syndrome, unspecified; K21.9 Gastro-esophageal reflux disease without esophagitis; F98.8 Other specified behavioral and emotional disorders with onset usually occurring in childhood and adolescence
CPT/HCPCS: 36415; 80053; 81003; 85025; 99283

== ENCOUNTER 2024-04-24 19:12 | Emergency (ER) | payer OTHER, SELFPAY ==
[2024-04-24 19:22] VITALS: BP 110/68; PULSE 72; RESP 16; TEMP 36.6; O2SAT 99
--- NOTE | 2024-04-24 19:38 | ED_ITS ---
HPI - Dizziness General Chief Complaint: Dizziness Stated Complaint: dizzy,little appetite,lower back, neck pain Time Seen by Provider: 04/24/24 19:41 Source: patient, RN notes reviewed and old records reviewed Mode of arrival: ambulatory Limitations: no limitations Related Data Home Medications ?Medication ?Instructions ?Recorded ?Confirmed ?Last Taken ?Type methylphenidate HCl 30 mg biphasic 30 mg PO DAILY 04/04/19 04/04/19 Unknown History 30-70 capsule,extended release omeprazole 20 mg capsule,delayed 20 mg PO DAILY 04/04/19 04/04/19 Unknown History release Allergies Allergy/AdvReac Type Severity Reaction Status Date / Time No Known Allergies Allergy Unverified 04/04/19 18:01 Review of Systems Review of Systems: All systems reviewed & are unremarkable except as noted in HPI and below Constitutional: Constitutional: Reports no additional constitutional complaints ENT: Reports system reviewed and no additional complaints, except as documented Cardiovascular: Cardiovascular: Reports no additional cardiovascular complaints Respiratory: Respiratory: Reports no additional respiratory complaints Gastrointestinal: Gastrointestinal: Reports no additional gastrointestinal complaints [facility] Past Medical History Medical History (Updated 04/24/24 @ 19:51 by Dyan Spencer APRN) Attention deficit disorder History of gastroesophageal reflux (GERD) Surgical History Surgical History (Updated 12/29/23 @ 22:06 by Jenaro Nixon MD) No significant past surgical history Social History Social History (Updated 12/29/23 @ 22:05 by Jenaro Nixon MD) Smoking status: Never smoker Alcohol intake: never Substance use: never Comments At the time of my signature, I reviewed and agree with the nursing past medical, surgical, social, and family history. There is no relevant family history pertinent to the patient complaint. Exam Const: General: cooperative, no acute distress, alert and awake Orientation/consciousness: oriented to person, oriented to place and oriented to time HENMT: Head: normal to inspection Resp: Effort & Inspection: normal respiratory effort and able to speak in complete sentences Auscultation: clear to auscultation bilaterally, no crackles, no rales, no rhonchi and no wheezes Cardio: Palpation: normal PMI Rate: regular rate Rhythm: regular rhythm Heart sounds: S1 normal heart sound present and S2 normal heart sound present Neuro: General: oriented to person, oriented to place and oriented to time Cranial nerves: Yes CN's II-XII intact bilaterally Psych: Appearance: grossly normal Thought process: Normal thought process present Insight: Good insight present (Psych) Judgement: Good judgement present (Psych) Course Course Level of Care: Express Care Visit Vital Signs Vital signs: Vital Signs Temperature 97.9 F 04/24/24 19:22 Pulse Rate 72 04/24/24 19:22 Respiratory Rate 16 04/24/24 19:22 Blood Pressure 110/68 04/24/24 19:22 Pulse Oximetry 99 04/24/24 19:22 Oxygen Delivery Room Air 04/24/24 19:22 Temperature 97.9 F 04/24/24 19:22 Pulse Rate 72 04/24/24 19:22 Respiratory Rate 16 04/24/24 19:22 Blood Pressure 110/68 04/24/24 19:22 Pulse Oximetry 99 04/24/24 19:22 Oxygen Delivery Room Air 04/24/24 19:22 Reviewed Discharge Plan Discharge Clinical Impression: Viral illness Patient Disposition: Home, Self-Care Condition: Stable Instructions: Antibiotic Form Additional Instructions: Follow-up with primary care provider. Emergency department for new or worse symptoms. Patient Language: Malawian Prescriptions: No Action omeprazole 20 mg capsule,delayed release(DR/EC) 20 mg PO DAILY methylphenidate HCl 30 mg capsule, ER biphasic 30-70 30 mg PO DAILY lidocaine 5 % adhesive patch,medicated 2 patch topical DAILY Qty: 30 0RF Rx Instructions: leave on most painful area for up to 12 hrs Follow-up/Referrals: Roberth,MD Terry [Primary Care Provider] - 2 Weeks Stand Alone Forms: Work/School Release IP Time of Disposition: 19:51
[2024-04-24 20:00] LABS: EDCOVIDSCREEN Negative (Negative); EDINFLUASCREEN Negative (Negative); EDINFLUBSCREEN Negative (Negative)
== END 2024-04-24 19:59 | disposition home or self-care (01) ==
PROVIDERS: Emergency Provider Nurse Practitioner Family; PCP Pediatrics
DX: B34.9 Viral infection, unspecified (principal); Z20.822 Contact with and (suspected) exposure to COVID-19; F98.8 Other specified behavioral and emotional disorders with onset usually occurring in childhood and adolescence; K21.9 Gastro-esophageal reflux disease without esophagitis
CPT/HCPCS: 87426; 87804; 99212; G0463

== ENCOUNTER 2025-01-24 16:13 | Emergency (ER) | payer OTHER, SELFPAY ==
--- NOTE | ~2025-01-24 | US_ITS ---
US abdomen limited INDICATION: Concern for pericholecystic fluid. PROCEDURE: Realtime right upper abdominal ultrasound. COMPARISON: CT dated 01/24/2025 FINDINGS: The pancreas is normal without focal mass or pancreatic ductal dilation. Liver echotexture is normal without focal mass or intrahepatic biliary dilatation. There is normal directional flow in the portal vein. The gallbladder is normal without stones, gallbladder wall thickening or pericholecystic fluid. Common bile duct measures 3 mm. Positive sonographic Patel's sign. IMPRESSION: 1: Unremarkable limited abdominal ultrasound. No evidence for pericholecystic fluid. 2: Positive sonographic Patel's sign, nonspecific. If there is continued concern for cholecystitis, correlation with nuclear hepatobiliary scan recommended. Reviewed, dictated and finalized at location O. ET TRIMMER IMPRESSION: 1: Unremarkable limited abdominal ultrasound. No evidence for pericholecystic f luid. 2: Positive sonographic Patel's sign, nonspecific. If there is continued conc arnulfo for cholecystitis, correlation with nuclear hepatobiliary scan recommended.
--- NOTE | ~2025-01-24 | US_ITS ---
EXAMINATION: US pelvic complete w TV INDICATION: Free fluid in the pelvis. Pelvic pain. Comparison:No prior studies for comparison. TECHNIQUE: Multiple transabdominal and endovaginal sonographic images of the pelvis performed. FINDINGS: The uterus measures 8.9 x 3 x 5.8 cm. The endometrial complex measures 3 mm. The right ovary measures 2.2 x 2.7 x 2.6 cm and the left ovary measures 2.6 x 0.9 x 1.9 cm. There are small follicles in each ovary. There is a tubular cystic structure left adnexal which may involve the ovary or represent hydrosalpinx. Normal doppler signal in both ovaries. There is no free fluid in the pelvis. There are no abnormal masses seen on either side. IMPRESSION: 1. Tubular cystic structure left adnexa which may represent an irregular shaped ovarian cyst or hydrosalpinx. Reviewed, dictated and finalized at location O. CIATE APPLICATION DEVELOPER
--- NOTE | ~2025-01-24 | CT_ITS ---
CT abdomen pelvis w con INDICATION:RLQ abdominal pain . COMPARISON: None. TECHNIQUE: Axial images of the abdomen and pelvis were obtained following infusion of 100 mL Isovue 300. Dose optimization technique was utilized. FINDINGS: The lung bases are clear. The liver parenchyma is unremarkable. No intrahepatic mass or ductal dilatation is evident. There is thickening of the gallbladder with mild adjacent pericholecystic fluid. Follow-up ultrasound is recommended. The pancreas and spleen are normal in appearance. The adrenal glands are symmetric in size. The kidneys demonstrate symmetric uptake and excretion of contrast. No cystic mass is evident. There is no solid mass. There is no hydronephrosis. The stomach and bowel loops are unremarkable. The appendix is not visualized however no secondary signs of appendicitis are identified. The bladder and rectum are normal. Cystic adnexa are noted measuring up to 3.1 x 2 cm. There is free fluid in the pelvis. There is no significant retroperitoneal lymphadenopathy. The aorta, visceral vessels and renal arteries demonstrate normal caliber and patency. The lower thoracic and lumbar vertebrae are in normal alignment. IMPRESSION: Thickening of the gallbladder wall with mild adjacent pericholecystic fluid but no calcified gallstone. Follow-up ultrasound is recommended. Cystic adnexa measuring up to 3.1 x 2 cm. There is no bowel obstruction. There is free fluid in the pelvis. All CT scans at this facility are performed using low dose modulation techniques as appropriate to perform exam including the following: automated exposure control; use of iterative reconstruction technique; adjustment of the mA and/or kV according to patient size (this includes techniques or standardized protocols for targeted exams where dose is matched to indication/reason for exam). Reviewed, dictated and finalized at location S. ENGINEER IMPRESSION: Thickening of the gallbladder wall with mild adjacent pericholecystic fluid but no calcified gallstone. Follow-up ultrasound is recommended. Cystic adnexa measuring up to 3.1 x 2 cm. There is no bowel obstruction. There is free fluid in the pelvis. All CT scans at this facility are performed using low dose modulation techniqu es as appropriate to perform exam including the following: automated exposure c ontrol; use of iterative reconstruction technique; adjustment of the mA and/or kV according to patient size (this includes techniques or standardized protocol s for targeted exams where dose is matched to indication/reason for exam).
[2025-01-24 16:27] VITALS: BP 123/77; PULSE 74; RESP 16; TEMP 36.9; O2SAT 100
--- NOTE | 2025-01-24 18:14 | ED_ITS ---
HPI - Abdominal Pain General Chief Complaint: Abdominal Pain <DONYA Mcgill - Last Filed: 01/24/25 18:57> Stated Complaint: abd pain <DONYA Mcgill - Last Filed: 01/24/25 18:57> Time Seen by Provider: 01/24/25 18:14 <DONYA Mcgill - Last Filed: 01/24/25 18:57> Focused HPI: 24 year old female presenting with intermittent abdominal pain and spotting for the last 8 days. This morning experienced severe dyspareunia accompanied by severe diffuse lower abdominal pain. Denies fevers/chills, nausea/vomiting, LOC, dysuria, or dizziness. LMP notes to be normal and ended on January 11 then she began spotting on the . Endorses one sexual partner and has not been tested for STDs. Has not yet had a pap smear. She does not use contraception. GENERAL: Well-appearing, well-nourished, and in no acute distress. HEAD: Normocephalic, atraumatic. CHEST: Clear to auscultation. ?No respiratory distress. HEART: Regular rate and rhythm.? NEURO: ?Alert and oriented x3. Patient screened in triage and initial orders placed.? ?Additional care and disposition to be based upon?diagnostic testing and treatment. <DONYA Mcgill - Last Filed: 01/24/25 18:57> History of Present Illness HPI narrative: I agree with the HPI above. <Maine Barillas APRN - Last Filed: 01/24/25 22:38> Related Data Home Medications: Home Medications ?Medication ?Instructions ?Recorded ?Confirmed ?Last Taken ?Type methylphenidate HCl 30 mg biphasic 30 mg PO DAILY 03/2204/04/19 Unknown History 30-70 capsule,extended release omeprazole 20 mg capsule,delayed 20 mg PO DAILY 04/04/19 Unknown History release <DONYA Mcgill - Last Filed: 01/24/25 18:57> Allergies/Adverse Reactions: Allergies Allergy/AdvReac Type Severity Reaction Status Date / Time No Known Allergies Allergy Verified 01/24/25 16:27 <DONYA Mcgill - Last Filed: 01/24/25 18:57> Review of Systems 2 Review of Systems: All systems reviewed & are unremarkable except as noted in HPI and below <Maine Barillas APRN - Last Filed: 01/24/25 22:38> PMFSH Past Medical History Medical History: Medical History Attention deficit disorder History of gastroesophageal reflux (GERD) <DONYA Mcgill - Last Filed: 01/24/25 18:57> Surgical History Surgical History: Surgical History No significant past surgical history <DONYA Mcgill - Last Filed: 01/24/25 18:57> Social History Social History: Social History Alcohol intake: never Substance use: never <DONYA Mcgill - Last Filed: 01/24/25 18:57> Exam 2 Narrative: GENERAL: Well appearing, well-nourished, non-toxic, in no acute distress. HEAD: Normocephalic, atraumatic. NECK: Supple. No adenopathy, no masses. RESPIRATORY: Airway patent, respirations nonlabored. Clear to auscultation bilaterally, no rales, rhonchi, wheezing. CARDIOVASCULAR: Regular rate and rhythm without murmurs, rubs, or gallops. Peripheral pulses 2+ and equal bilaterally. ABDOMINAL: Soft, tender bilateral lower quadrants, nondistended, no hepatosplenomegaly. Normoactive BS. Negative Patel's sign, + Rovsing's sign, + McBurney's sign MUSCULOSKELETAL: Moves all extremities. Strength/ROM intact without gross deformities. SKIN: Warm, dry, normal color. No rashes. NEURO: A&O X3. Speech clear. Cranial nerves II-XII intact. No ataxic movements. PSYCHIATRIC: Appropriate mood and affect. Normal interaction. <Maine Barillas APRN - Last Filed: 01/24/25 22:38> Course Vital Signs Vital signs: Vital Signs Temperature 36.9 C 01/24/25 16:27 Pulse Rate 74 01/24/25 16:27 Respiratory Rate 16 01/24/25 16:27 Blood Pressure 123/77 01/24/25 16:27 Pulse Oximetry 100 01/24/25 16:27 Temperature 36.9 C 01/24/25 16:27 Pulse Rate 63 01/24/25 20:32 Respiratory Rate 18 01/24/25 20:32 Blood Pressure 98/74 L 01/24/25 20:32 Pulse Oximetry 100 01/24/25 20:32 <Tatiana Armstrong PA - Last Filed: 01/24/25 18:57> Vital Signs Temperature 36.9 C 01/24/25 16:27 Pulse Rate 74 01/24/25 16:27 Respiratory Rate 16 01/24/25 16:27 Blood Pressure 123/77 01/24/25 16:27 Pulse Oximetry 100 01/24/25 16:27 Temperature 36.9 C 01/24/25 16:27 Pulse Rate 63 01/24/25 20:32 Respiratory Rate 18 01/24/25 20:32 Blood Pressure 98/74 L 01/24/25 20:32 Pulse Oximetry 100 01/24/25 20:32 <Maine Barillas, SNACK BAR COOK - Last Filed: 01/24/25 22:38> MDM - Abdominal Pain MDM Narrative Medical decision making narrative: 24 year old female presenting with intermittent abdominal pain and spotting for the last 8 days. This morning experienced severe dyspareunia accompanied by severe diffuse lower abdominal pain. Denies fevers/chills, nausea/vomiting, LOC, dysuria, or dizziness. LMP notes to be normal and ended on January 11 then she began spotting on the . Endorses one sexual partner and has not been tested for STDs. Has not yet had a pap smear. She does not use contraception. Labs Ordered: CBC, CMP, PTT, INR, GC chlamydia, Trichomonas, lipase Imaging Ordered: Ultrasound right upper quadrant, ultrasound pelvis, CT abdomen pelvis Medications Ordered: 1 L normal saline IV bolus, potassium p.o., doxycycline p.o., ceftriaxone 1 g IV, Flagyl 500 mg p.o. Results: Pt's pelvic US indicates . Tubular cystic structure left adnexa which may represent an irregular shaped ovarian cyst or hydrosalpinx. Her CT scan indicates Thickening of the gallbladder wall with mild adjacent pericholecystic fluid but no calcified gallstone. Follow-up ultrasound is recommended. Cystic adnexa measuring up to 3.1 x 2 cm. There is no bowel obstruction. There is free fluid in the pelvis. Pt's RUQ indicates 1: Unremarkable limited abdominal ultrasound. No evidence for pericholecystic fluid. 2: Positive sonographic Patel's sign, nonspecific. If there is continued concern for cholecystitis, correlation with nuclear hepatobiliary scan recommended. Diagnosis: Pelvic inflammatory disease Consults: 2109- OBGYN, Dr Mak, who reports pt's US and CT scans indicates pt has pelvic inflammatory disease. She advised pt be treated for STDs and advised to follow-up outpatient. Dr. Mak reports pt's STDs results may be negative because PID often occurs from microscopic organisms. Patient Education/Shared MDM: Results of lab work and imaging shared with patient. She will be given her 1st dose of oral antibiotics and ceftriaxone IV here in the ER. Patient strongly advised to maintain hydration status upon discharge and follow-up with OBGYN as soon as possible. She will be discharged home with a prescription for doxycycline and Flagyl. Strict return precautions provided. Patient verbalized understanding and is in agreement with plan. Vital signs stable at time of discharge. All questions answered. <Maine Barillas APRN - Last Filed: 01/24/25 22:38> Differential Diagnosis Differential diagnosis: Likely abdominal pain, acute appendicitis, constipation, small bowel obstruction and other (STDs, pelvic inflammatory disease) <Maine Barillas APRN - Last Filed: 01/24/25 22:38> Lab Data Attestation: I reviewed the patient's lab results. <Maine Barillas APRN - Last Filed: 01/24/25 22:38> Result diagrams: 01/24/25 18:39 01/24/25 18:39 <DONYA Mcgill - Last Filed: 01/24/25 18:57> Labs: Lab Results 01/24/25 01/24/25 Range/Units 18:39 19:09 WBC 6.8 (4.5-10.0) K/mm3 RBC 4.51 (4.2-5.4) M/mm3 Hgb 14.2 (12.0-15.0) g/dL Hct 41.1 (37.0-47.0) % MCV 91.1 (80-100) fl MCH 31.5 (26-34) pg MCHC 34.5 (32-36) g/dl RDW 12.2 (11.5-14.5) % Plt Count 209 (150-375) k/mm3 MPV 9.1 (7.4-10.4) fl Immature Gran % (Auto) 0.4 (0-0.5) % Neut % (Auto) 61.2 (45.5-73.1) % Lymph % (Auto) 29.4 (18.3-44.2) % Clarke % (Auto) 7.8 (2.6-8.5) % Eos % (Auto) 0.9 (0-4.4) % Baso % (Auto) 0.3 (0.2-1.2) % Lymph # (Auto) 1.99 (0.9-3.2) K/mm3 Clarke # (Auto) 0.5 (0.1-0.6) K/mm3 Eos # (Auto) 0.1 (0-0.3) K/mm3 Baso # (Auto) 0.0 (0.0-0.1) K/mm3 Abs Immat Gran (auto) 0.03 (0.00-0.031) K/mm3 Absolute Neuts (auto) 4.2 (1.3-6.7) K/mm3 Absolute Nucleated RBC 0.000 (0.0-0.012) K/mm3 Nucleated RBC % 0.0 (0.0-0.2) % PT 13.9 (11.1-14.7) Seconds INR 1.1 APTT 26.6 (22.3-36.8) Seconds Sodium 137 (137-145) mmol/L Potassium 3.1 L (3.4-5.0) mmol/L Chloride 102 (98-107) mmol/L Carbon Dioxide 28 (22-30) mmol/L Anion Gap 7 (4-12) mmol/L BUN 9 (7-17) mg/dL Creatinine 0.72 (0.7-1.0) mg/dL Estim Creat Clear Calc Not Reportable Estimated GFR > 60 (59 - ) Glucose 87 (65-110) mg/dL Calcium 8.6 (8.4-10.2) mg/dL Total Bilirubin 0.4 (0.2-1.3) mg/dL AST 23 (14-36) U/L ALT 19 (6-35) U/L Alkaline Phosphatase 49 (38-126) U/L Total Protein 7.2 (6.3-8.2) g/dL Albumin 4.1 (3.5-5.1) g/dL Lipase 124 (23-300) U/L Beta HCG, Quant < 2.39 mIU/ML Urine Color Yellow (Yellow) Urine Appearance Clear (Clear) Urine pH 7.0 (5.0-9.0) Ur Specific [place] 1.003 (1.001-1.035) Urine Protein Negative (Negative) mg/dL Urine Glucose (UA) Negative (Negative) mg/dL Urine Ketones Negative (Negative) mg/dL Ur Blood (Man) 2+ H (Negative) Urine Nitrate Negative (Negative) Urine Bilirubin Negative (Negative) Urine Urobilinogen 0.2 (<2.0) mg/dL Leukocyte Esterase Rfl Negative (Negative) LOUIS/UL Urine RBC 0-2 (0-2) /hpf Urine WBC 0-5 (0-3) /hpf Ur Squamous Epith Cells None seen (Few) /hpf Urine Bacteria None seen /hpf Urine Casts 0-2 C. trachomatis (PCR) Not detected (NOT DETECTE) N. gonorrhoeae (PCR) Not detected (NOT DETECTE) <DONYA Mcgill - Last Filed: 01/24/25 18:57> Lab Results 01/24/25 01/24/25 Range/Units 18:39 19:09 WBC 6.8 (4.5-10.0) K/mm3 RBC 4.51 (4.2-5.4) M/mm3 Hgb 14.2 (12.0-15.0) g/dL Hct 41.1 (37.0-47.0) % MCV 91.1 (80-100) fl MCH 31.5 (26-34) pg MCHC 34.5 (32-36) g/dl RDW 12.2 (11.5-14.5) % Plt Count 209 (150-375) k/mm3 MPV 9.1 (7.4-10.4) fl Immature Gran % (Auto) 0.4 (0-0.5) % Neut % (Auto) 61.2 (45.5-73.1) % Lymph % (Auto) 29.4 (18.3-44.2) % Clarke % (Auto) 7.8 (2.6-8.5) % Eos % (Auto) 0.9 (0-4.4) % Baso % (Auto) 0.3 (0.2-1.2) % Lymph # (Auto) 1.99 (0.9-3.2) K/mm3 Clarke # (Auto) 0.5 (0.1-0.6) K/mm3 Eos # (Auto) 0.1 (0-0.3) K/mm3 Baso # (Auto) 0.0 (0.0-0.1) K/mm3 Abs Immat Gran (auto) 0.03 (0.00-0.031) K/mm3 Absolute Neuts (auto) 4.2 (1.3-6.7) K/mm3 Absolute Nucleated RBC 0.000 (0.0-0.012) K/mm3 Nucleated RBC % 0.0 (0.0-0.2) % PT 13.9 (11.1-14.7) Seconds INR 1.1 APTT 26.6 (22.3-36.8) Seconds Sodium 137 (137-145) mmol/L Potassium 3.1 L (3.4-5.0) mmol/L Chloride 102 (98-107) mmol/L Carbon Dioxide 28 (22-30) mmol/L Anion Gap 7 (4-12) mmol/L BUN 9 (7-17) mg/dL Creatinine 0.72 (0.7-1.0) mg/dL Estim Creat Clear Calc Not Reportable Estimated GFR > 60 (59 - ) Glucose 87 (65-110) mg/dL Calcium 8.6 (8.4-10.2) mg/dL Total Bilirubin 0.4 (0.2-1.3) mg/dL AST 23 (14-36) U/L ALT 19 (6-35) U/L Alkaline Phosphatase 49 (38-126) U/L Total Protein 7.2 (6.3-8.2) g/dL Albumin 4.1 (3.5-5.1) g/dL Lipase 124 (23-300) U/L Beta HCG, Quant < 2.39 mIU/ML Urine Color Yellow (Yellow) Urine Appearance Clear (Clear) Urine pH 7.0 (5.0-9.0) Ur Specific [place] 1.003 (1.001-1.035) Urine Protein Negative (Negative) mg/dL Urine Glucose (UA) Negative (Negative) mg/dL Urine Ketones Negative (Negative) mg/dL Ur Blood (Man) 2+ H (Negative) Urine Nitrate Negative (Negative) Urine Bilirubin Negative (Negative) Urine Urobilinogen 0.2 (<2.0) mg/dL Leukocyte Esterase Rfl Negative (Negative) LOUIS/UL Urine RBC 0-2 (0-2) /hpf Urine WBC 0-5 (0-3) /hpf Ur Squamous Epith Cells None seen (Few) /hpf Urine Bacteria None seen /hpf Urine Casts 0-2 C. trachomatis (PCR) Not detected (NOT DETECTE) N. gonorrhoeae (PCR) Not detected (NOT DETECTE) <Maine Barillas APRN - Last Filed: 01/24/25 22:38> Imaging Data Attestation: I personally reviewed and interpreted this imaging study as follows: < Maine Barillas APRN - Last Filed: 01/24/25 22:38> Radiologist's impression: ITS Impressions Abdomen/Pelvis CT 01/24/25 19:52 IMPRESSION: Thickening of the gallbladder wall with mild adjacent pericholecystic fluid but no calcified gallstone. Follow-up ultrasound is recommended. Cystic adnexa measuring up to 3.1 x 2 cm. There is no bowel obstruction. There is free fluid in the pelvis. All CT scans at this facility are performed using low dose modulation techniques as appropriate to perform exam including the following: automated exposure control; use of iterative reconstruction technique; adjustment of the mA and/or kV according to patient size (this includes techniques or standardized protocols for targeted exams where dose is matched to indication/reason for exam). Abdomen Ultrasound 01/24/25 21:00 IMPRESSION: 1: Unremarkable limited abdominal ultrasound. No evidence for pericholecystic fluid. 2: Positive sonographic Patel's sign, nonspecific. If there is continued concern for cholecystitis, correlation with nuclear hepatobiliary scan recommended. Pelvic/Transvag US 01/24/25 21:03 IMPRESSION: 1. Tubular cystic structure left adnexa which may represent an irregular shaped ovarian cyst or hydrosalpinx. <DONYA Mcgill - Last Filed: 01/24/25 18:57> ITS Impressions Abdomen/Pelvis CT 01/24/25 19:52 IMPRESSION: Thickening of the gallbladder wall with mild adjacent pericholecystic fluid but no calcified gallstone. Follow-up ultrasound is recommended. Cystic adnexa measuring up to 3.1 x 2 cm. There is no bowel obstruction. There is free fluid in the pelvis. All CT scans at this facility are performed using low dose modulation techniques as appropriate to perform exam including the following: automated exposure control; use of iterative reconstruction technique; adjustment of the mA and/or kV according to patient size (this includes techniques or standardized protocols for targeted exams where dose is matched to indication/reason for exam). Abdomen Ultrasound 01/24/25 21:00 IMPRESSION: 1: Unremarkable limited abdominal ultrasound. No evidence for pericholecystic fluid. 2: Positive sonographic Patel's sign, nonspecific. If there is continued concern for cholecystitis, correlation with nuclear hepatobiliary scan recommended. Pelvic/Transvag US 01/24/25 21:03 IMPRESSION: 1. Tubular cystic structure left adnexa which may represent an irregular shaped ovarian cyst or hydrosalpinx. <Maine Barillas APRN - Last Filed: 01/24/25 22:38> Discharge Plan Discharge Clinical Impression: Pelvic inflammatory disease, Adnexal cyst, Thickening of wall of gallbladder <DONYA Mcgill - Last Filed: 01/24/25 18:57> Patient Disposition: Home <DONYA Mcgill - Last Filed: 01/24/25 18:57> Condition: Stable <DONYA Mcgill - Last Filed: 01/24/25 18:57> Instructions: Antibiotic Form, Pelvic Inflammatory Disease (ED) <DONYA Mcgill - Last Filed: 01/24/25 18:57> Additional Instructions: Please return to the ER with any worsening symptoms. Follow-up with OBGYN as soon as possible. Take all medications as prescribed, including regularly scheduled medications. Complete your full dose of antibiotics. You may take Tylenol and/or ibuprofen for pain control. <DONYA Mcgill - Last Filed: 01/24/25 18:57> Patient Language: Faroese <DONYA Mcgill - Last Filed: 01/24/25 18:57> Prescriptions: New doxycycline monohydrate 100 mg capsule 100 mg PO BID Qty: 14 0RF metronidazole 500 mg tablet 500 mg PO BID Qty: 14 0RF No Action omeprazole 20 mg capsule,delayed release(DR/EC) 20 mg PO DAILY methylphenidate HCl 30 mg capsule, ER biphasic 30-70 30 mg PO DAILY lidocaine 5 % adhesive patch,medicated 2 patch topical DAILY Qty: 30 0RF Rx Instructions: leave on most painful area for up to 12 hrs <DONYA Mcgill - Last Filed: 01/24/25 18:57> Follow-up/Referrals: Roberth,MD Terry [Primary Care Provider, Unknown] Sarath Mak MD [Physician, LIQU[employer] GRINDING MILL OPERATOR] <DONYA Mcgill - Last Filed: 01/24/25 18:57> Stand Alone Forms: Work/School Release IP <DONYA Mcgill - Last Filed: 01/24/25 18:57> Time of Disposition: 22:38 <DONYA Mcgill - Last Filed: 01/24/25 18:57> 22:38 <Maine Barillas APRN - Last Filed: 01/24/25 22:38>
[2025-01-24 18:38] VITALS: BP 114/80; PULSE 72; RESP 18; O2SAT 100
[2025-01-24 18:45] LABS: Hematocrit 41.1 % (37.0-47.0); Hemoglobin 14.2 g/dL (12.0-15.0); Immature Granulocyte Percent A 0.4 % (0-0.5); Lymphocytes Absolute Auto 1.99 K/mm3 (0.9-3.2); Mean Corpuscular HGB Conc 34.5 g/dl (32-36); Mean Corpuscular Hemoglobin 31.5 pg (26-34); Mean Corpuscular Volume 91.1 fl (80-100); Nucleated Red Blood Cells Absolute Auto 0.000 K/mm3 (0.0-0.012); Nucleated Red Blood Cells Perc 0.0 % (0.0-0.2); Platelet Count Result 209 k/mm3 (150-375); Red Blood Count 4.51 M/mm3 (4.2-5.4); White Blood Count 6.8 K/mm3 (4.5-10.0)
[2025-01-24 18:49] LABS: Add Urine Microscopic? YES; Appearance Urine Clear (Clear); Glucose Urine UA Negative (Negative); Leukocyte Esterase Ur Negative LEU/UL (Negative); Nitrate Urine Negative (Negative); Non Pathogenic Casts 0-2; Specific Grav Ur 1.003 (1.001-1.035)
[2025-01-24 18:58] LABS: Alanine Aminotransferase 19 U/L (6-35); Albumin Level 4.1 g/dL (3.5-5.1); Alkaline Phosphatase 49 U/L (38-126); Anion Gap 7 mmol/L (4-12); Aspartate Amino Transferase 23 U/L (14-36); Bilirubin,Total 0.4 mg/dL (0.2-1.3); Blood Urea Nitrogen 9 mg/dL (7-17); Calcium 8.6 mg/dL (8.4-10.2); Carbon Dioxide 28 mmol/L (22-30); Chloride 102 mmol/L (98-107); Estimated Glomerular Filt Rate > 60; Glucose 87 mg/dL (65-110); Potassium 3.1 mmol/L (3.4-5.0); Sodium 137 mmol/L (137-145); Total Protein 7.2 g/dL (6.3-8.2)
[2025-01-24] MEDS: SODIUM CHLORIDE 0.9% IV 1,000 ML 999 ML IV CONT (19:08)
[2025-01-24 19:16] LABS: Beta HCG Quantitative < 2.39 mIU/ML
[2025-01-24 19:27] LABS: Lipase 124 U/L (23-300)
[2025-01-24 19:28] LABS: INR 1.1; Prothrombin Time 13.9 Seconds (11.1-14.7)
[2025-01-24 19:29] LABS: Partial Thromboplastin Time 26.6 Seconds (22.3-36.8)
[2025-01-24] MEDS: POTASSIUM CHLORIDE 20 MEQ PACKET (FOR LIQUID) 40 MEQ PO (20:19)
[2025-01-24 20:32] VITALS: BP 98/74; PULSE 63; RESP 18; O2SAT 100
[2025-01-24] MEDS: DOXYCYCLINE HYCLATE 100 MG TABLET PO (22:37)
[2025-01-24] MEDS: cefTRIAXone 1 GM in SODIUM CHLORIDE 0.9% IV 50 ML 100 ML IVPB (22:37)
[2025-01-24 22:55] VITALS: BP 118/79; PULSE 69; RESP 19; O2SAT 100
[2025-01-24 23:50] LABS: Trichomonas Vag PCR NOT DETECTED (NOT DETECTE)
--- OUTSIDE RECORDS SUMMARY | 2025-01-25 15:08 | XMS_ITS | Clinical Summary ---
Author Organization [facility] [employer] Address [address] [place] [address] Care Team Providers Care Senior Web Applications Developer Name Role Phone Terry Lepe MD Primary Care Provider Terry Lepe MD Unavailable [phone] Source Comments [facility],non-owned Affiliates and Associated Physician Practices is amultiple site organization consisting of ambulatory clinics and hospital sitesin [place], [place], [place] and [place]. This disclosure is being madepursuant to the Care Everywhere program and may not contain all information available regarding this patient. Last updated 17.[facility] Allergies No known active allergies Medications * Be aware that medications may not be up to date on this document. Alwaysverify current medications with the patient. medroxyPROGESTE Demarco (DEPO-PROVERA) 150 MG/ML prefilled syringe TK UTD BY MD OFFICE 0 07/30/2017 Active polyethylene glycol 3350 (MIRALAX) powder Take 17 g by mouth once daily 500 g 1 09/09/2017 Active fluticasone propionate (FLONASE) 50 MCG/ACT nasal spray [place] 2 sprays into each nostril once daily [...] fluticasone propionate (FLONASE) 50 MCG/ACT nasal spray [place] 2 sprays into each nostril once daily [...] drink = 0.6 oz pur e alcohol) Comments No Sex and Gender Information Value Date Recorded Sex Assigned at Not on file Legal Sex Female 2:38 PM CDT Gender Identity Not on file Sexual Orientation Not on file Last Filed Vital Signs Vital Sign Reading Time Taken Comments Blood Pressure 102/50 12/30/2017 1:14 PM CDT Pulse 72 12/30/2017 1:14 PM CDT Temperature 36.6 C (97.8 F) 11/19/2017 11:55 AM CDT Respiratory Rate 20 11/19/2017 11:5 5 AM CDT Oxygen Saturation 100% 10/19/2017 4:45 PM CDT Inhaled Oxygen Concentration - - Weight 46.2 kg (101 lb 13.6 oz) 11/23/2018 3:21 PM CDT Height 149 cm (4' 10.66) 04/21/2018 8:52 AM ZIPPER JOINER Body Mass Index - - Plan of Treatment Health Maintenance Due Date Last Done Comments HIV SCREENING 2017 HPV VACCINE (1 - 3-dose series) 2017 CHLAMYDIA/GONORRHEA SCREENING 2018 MENINGOCOCCAL (Group B) VACC INE SHARED DECISION-MAKING (1 of 2 - Standard) 2018 HEPATITIS C SCREENING 04/30/2020 DTAP/TDAP/TD VACCINES (1 - Tdap) 2021 HEPATITIS B VACCINE (1 of 3 - 19+ 3-dose series) 2021 DEPRESSION SCREENING 03/22/2024 COVID-19 VACCINE (1 - 2023-2 5 season) 2024 INFLUENZA VACCINE (#1) 2024 ZOSTER VACCINE (1 of 2) 2052 HIB VACCINE Aged Out No longer eligi ble based on patient's age to complete this topic MENINGOCOCCAL GROUPS A/C/Y/W VACCINE Aged Out No longer eligible b ased on patient's age to complete this topic PNEUMOCOCCAL VACCINE Aged Out No long er eligible based on patient's age to complete this topic Insurance [facility] Care Teams Senior Web Applications Developer Relationship Specialty Start Date End Date Terry Lepe MD [address] [id number] PCP - General Pediatrics 11/19/15 Terry Lepe MD [address] [address] 11/19/15
--- OUTSIDE RECORDS SUMMARY | 2025-01-25 15:41 | XMS_ITS | Clinical Summary ---
Author Organization [facility] [employer] Address [address] [place] [address] Care Team Providers Care Production Specialist Name Role Phone Terry Lepe MD Primary Care Provider [phone] Terry Lepe MD Unavailable [phone] Source Comments [facility],non-owned Affiliates and Associated Physician Practices is amultiple site organization consisting of ambulatory clinics and [place] sitesin [place] and [place]. This disclosure is being madepursuant to the Care Everywhere program and may not contain all information available regarding this patient. Last updated 17.[facility] Allergies No known active allergies Medications [...] fluticasone propionate (FLONASE) 50 MCG/ACT nasal spray [place] 2 sprays into each nostril once daily [...] fluticasone propionate (FLONASE) 50 MCG/ACT nasal spray [place] 2 sprays into each nostril once daily [...] 149 cm (4' 10.66) 04/21/2018 8:52 AM [employer] Body Mass Index - - Plan of [...] patient's age to complete this topic Insurance [facility] Care Teams Production Specialist Relationship Specialty Start Date End Date Terry Lepe MD [address] [id number] PCP - General Pediatrics 11/19/15 Terry Lepe MD [address] [id number] 11/19/15
== END 2025-01-24 22:55 | disposition home or self-care (01) ==
PROVIDERS: Physician Assistant; Emergency Provider Registered Nurse; PCP Pediatrics
DX: N73.9 Female pelvic inflammatory disease, unspecified (principal); N94.89 Other specified conditions associated with female genital organs and menstrual cycle; K82.8 Other specified diseases of gallbladder; K21.9 Gastro-esophageal reflux disease without esophagitis; F98.8 Other specified behavioral and emotional disorders with onset usually occurring in childhood and adolescence; Z79.899 Other long term (current) drug therapy
CPT/HCPCS: 36415; 74177; 76705; 76830; 76856; 80053; 81001; 83690; 84702; 85025; 85610; 85730; 87491; 87591; 87661; 96361; 96365; 99284; A9270; J0696; J7030; Q9967